=== PATIENT | female | born 1965 ===

== ENCOUNTER 2020-01-06 20:48 | Emergency (ER) | payer SELFPAY ==
[~2020-01-06] VITALS: Ht 157.5 cm; Wt 48.2 kg
[2020-01-06 20:52] VITALS: BP 157/51
--- NOTE | 2020-01-06 21:17 | NUR ---
RN TO ROOM TO CHECK PT IN, PT NOT IN ROOM AND UNABLE TO BE FOUND IN ER DEPARTMENT. PT ASSUMED TO HAVE ELOPE PRIOR TO EXAM OR EVALUATION.
== END 2020-01-06 21:19 | disposition left against medical advice (07) ==
LOC: ED 21:00
DX: R04.2 Hemoptysis (principal); Z53.21 Procedure and treatment not carried out due to patient leaving prior to being seen by health care provider